=== PATIENT | female | born 1970 | race Caucasian/White ===

== ENCOUNTER 2021-10-01 23:47 | Emergency (ER) | payer OTHER ==
[2021-10-02 00:34] VITALS: TEMP 97.6
[2021-10-02] MEDS ORDERED: SULFAMETH-TMP DS STARTER PACK 2 TAB BTL PO STA (01:25)
[2021-10-02] MEDS ORDERED: CEPHALEXIN 500MG STARTER PACK 4 CAP BTL PO STA (01:25)
--- NOTE | 2021-10-02 01:29 | ED ---
General Adult HPI - General Chief complaint: Extremity Problem,Nontraumatic Stated complaint: Left Big Toe Infection Time Seen by Provider: 10/02/21 01:13 Source: patient, RN notes reviewed, old records reviewed Mode of arrival: ambulatory - History of Present Illness Initial comments: 51-year-old female presenting for evaluation of pain and swelling in the left great toe. Patient had previous infection and had a ingrown toenail resection performed about 3 days ago. She's noted increased swelling with some clear and yellow drainage. No fevers. She is a diabetic. She states that her previous infection had cleared well with Keflex. - Related Data Previous Rx's Medication Instructions Recorded Cephalexin [Keflex] 500 mg PO QID 10 Days #40 cap 10/02/21 Sulfamethox-Tmp 800-160Mg [Bactrim 1 tab PO Q12HR 10 Days #20 tab 10/02/21 DS 800-160 mg] Allergies Allergy/AdvReac Type Severity Reaction Status Date / Time cyclobenzaprine AdvReac Rash/Hives Verified 10/02/21 00:35 [From Flexeril] Review of Systems ROS Statement: Those systems with pertinent positive or pertinent negative responses have been documented in the HPI. ROS Other: All systems not noted in ROS Statement are negative. Past Medical History Past Medical History: Diabetes Mellitus History of Any Multi-Drug Resistant Organisms: None Reported Past Surgical History: No Surgical Hx Reported Past Psychological History: Depression Smoking Status: Never smoker Past Alcohol Use History: None Reported Past Drug Use History: None Reported General Exam General appearance: alert, in no apparent distress Head exam: Present: atraumatic, normocephalic Eye exam: Present: normal appearance, PERRL ENT exam: Present: normal exam Neck exam: Present: normal inspection. Absent: tenderness, meningismus Respiratory exam: Present: normal lung sounds bilaterally. Absent: respiratory distress Cardiovascular Exam: Present: regular rate, normal rhythm GI/Abdominal exam: Present: soft. Absent: distended, tenderness Extremities exam: Present: other (Erythema to the left great toe, no current drainage. No drainable abscess.) Neurological exam: Present: alert, oriented X3 Psychiatric exam: Present: normal affect, normal mood Course Vital Signs 10/02/21 00:28 Temperature 97.6 F Pulse Rate 87 Respiratory 18 Rate Blood Pressure 177/84 O2 Sat by Pulse 95 Oximetry Medical Decision Making - Medical Decision Making 51-year-old female with suspected infection of the left great toe. Started on antibiotics in the emergency department. She will follow-up with her city designer. Disposition Clinical Impression: Cellulitis Disposition: HOME SELF-CARE Condition: Good Instructions (If sedation given, give patient instructions): Cellulitis (ED) Additional Instructions: Please take antibiotics as prescribed. Please follow up with her city designer. Please return with fever or worsening pain and swelling. Prescriptions: Sulfamethox-Tmp 800-160Mg [Bactrim DS 800-160 mg] 1 tab PO Q12HR 10 Days #20 tab Cephalexin [Keflex] 500 mg PO QID 10 Days #40 cap Is patient prescribed a controlled substance at d/c from ED?: No Referrals: Enrique Estrada MD [Primary Care Provider] - 1-2 days Time of Disposition: 01:28
[2021-10-02 01:53] VITALS: BP 141/72; PULSE 76; RESP 16
== END 2021-10-02 01:56 | disposition home or self-care (01) ==
LOC: EC 23:47
DX: L03.032 Cellulitis of left toe (principal); E11.9 Type 2 diabetes mellitus without complications; Z88.8 Allergy status to other drugs, medicaments and biological substances
CPT/HCPCS: 99282

== ENCOUNTER 2022-10-06 06:55 | Day surgery (SDC) | payer OTHER ==
[2022-10-05 11:08] VITALS: BMI 32.8
[~2022-10-06 06:55] MED LIST: LACTATED RINGERS 1,000 ML IV SCH
[2022-10-06 07:17] VITALS: TEMP 97
[2022-10-06] MEDS ORDERED: LACTATED RINGERS 1,000 ML IV ONE (07:18)
[2022-10-06 07:25] LABS: Glucose,Whole Blood 102 mg/dL (70-110)
[2022-10-06] MEDS ORDERED: fentaNYL (PF) 50 MCG/ML 2 ML AMP ONE (07:52)
[2022-10-06] MEDS ORDERED: PROPOFOL 10 MG/ML 20 ML VIAL IV ONE (07:52)
--- NOTE | 2022-10-06 08:11 | P.PCN ---
Date of Procedure: 10/06/22 Procedure(s) Performed: BRIEF HISTORY: Patient is a 52-year-old pleasant white female scheduled for an elective colonoscopy as a part of screening for colon cancer and strong family history of colon cancer. Her mother was diagnosed with colon cancer at age 43 and her father was diagnosed with colon cancer at age 65. She also has a maternal grandmother diagnosed at age 55. Her last colonoscopy was 3 years ago and was noted to have a polyp. PROCEDURE PERFORMED: Colonoscopy. PREOPERATIVE DIAGNOSIS: Screening for colon cancer and strong family history of colon cancer. IV sedation per Anesthesia. PROCEDURE: After informed consent was obtained, the patient, was brought into the endoscopy unit. IV sedation was administered by Anesthesia under continuous monitoring. Digital rectal examination was normal. Initially the Olympus CF-160 flexible video colonoscope was then inserted in the rectum, gradually advanced into the cecum without any difficulty. Careful examination was performed as the scope was gradually being withdrawn. Ileocecal valve and the appendiceal orifice were visualized and appeared normal. Prep was excellent. Mucosa of the cecum, ascending colon, transverse colon, descending colon, sigmoid colon, and rectum appeared normal. Retroflexion was performed in the rectum and no lesions were seen. The patient tolerated the procedure well. IMPRESSION: Normal-appearing colon from rectum to cecum with no evidence of colorectal neoplasia. RECOMMENDATIONS: Findings of this examination were discussed with the patient as well as a family. She was advised to have a repeat screening colonoscopy every 3 years because of the strong family history of colon cancer..
[2022-10-06 08:15] VITALS: RESP 16
[2022-10-06 08:29] VITALS: BP 144/81; PULSE 83
== END 2022-10-06 08:51 | disposition home or self-care (01) ==
LOC: ORWHC2ENDO 06:55
PROVIDERS: ATTEND Internal Medicine Gastroenterology
DX: Z12.11 Encounter for screening for malignant neoplasm of colon (principal); E11.9 Type 2 diabetes mellitus without complications; F32.A Depression, unspecified; F17.200 Nicotine dependence, unspecified, uncomplicated; Z79.84 Long term (current) use of oral hypoglycemic drugs; Z80.0 Family history of malignant neoplasm of digestive organs; Z79.899 Other long term (current) drug therapy; Z88.8 Allergy status to other drugs, medicaments and biological substances
CPT/HCPCS: 45378; J3010; J2704